=== PATIENT | female | born 1970 | race American Indian/Alaskan Native ===

== ENCOUNTER 2017-03-16 09:03 | Day surgery (SDC) | payer OTHER ==
--- NOTE | 2017-03-15 17:53 | History and Physical Report ---
History of Present Illness Date of examination: 03/12/17 History of present illness: Patient has been reassessed/reevaluated/re-examined. H&P has been reviewed. No interval changes. This is a 46 years old female who presents with menstrual disorder. She complains of irregular menses, mid-cycle spotting, heavy bleeding, dysmenorrhea , clotting, history of fibroids, fatigue and cramping, but denies lack of menses , history of ovarian cysts, history of thyroid disease, history of PCOS, history of bleeding disorder and lightheadedness. The patient also presents with uterine fibroids. She complains of abdominal pain, abdominal pressure, pelvic pain, pelvic pressure, menorrhagia and intermenstrual bleeding. Prior to today's visit the patient has had MRI of pelvis and US of pelvis. Patient with submucosal myoma scheduled to undergo uterine fibroid embolization and need removal prior to UFE Vital Signs: Patient Profile: 46 Years Old Female LMP: 03/12/2017 Height: 65 inches (165.10 cm) Weight: 157 pounds (71.36 kg) BMI: 26.12 BSA: 1.79 Menstrual History: LMP (date): 03/12/2017 Current Method of Contraception: None Past History : 6 Term Births: 6 Premature Births: 0 Living Children: 5 Para: 6 Mult. Births: 0 Prev : 0 Prev. attempt? 0 Aborta: 0 Elect. Ab: 0 Spont. Ab: 0 Ectopics: 0 [employer]ICE [employer]IST History Operations: umbilical hernia Tubal Ligation Abnormal PAP: positive Uterine Anomaly: positive fibroids Infection History HIV Risk Eval: no Personal hx. of genital herpes: yes Current Allergies (reviewed today): * LISINOPRIL (Critical) VICODIN (Critical) Past Medical History: Hypertension Past Surgical History: umbilical hernia Tubal Ligation Family History Summary: Other family member - Has Family History of Diabetes - Entered On: 11/09/2016 Other family member - Has Family History of Hypertension - Entered On: 11/09/2016 Social History: Patient is Smoking History: Patient has never smoked. Risk Factors: Smoked Tobacco Use: Never smoker Smokeless Tobacco Use: Never Passive smoke exposure: no Drug use: no HIV high-risk behavior: no Alcohol use: no Exercise: no Seatbelt use: 100 % Past History Past Medical History: other (See HPI) Past Surgical History: Other (See HPI) Social history: other (See HPI) Family history: other (See HPI) Medications and Allergies Allergies Allergy/AdvReac Type Severity Reaction Status Date / Time hydrocodone Allergy dizziness, Verified 03/14/17 17:44 N&V RANI Inhibitors AdvReac Swelling Unverified 03/14/17 17:44 Home Medications Medication Instructions Recorded Confirmed Last Taken Type Fluconazole [Diflucan TAB] 1 tab PO PRN PRN 03/14/17 03/14/17 Unknown History Hydrochlorothiazide [HCTZ] 25 mg PO DAILY 03/14/17 03/14/17 Unknown History Spironolactone [Aldactone] 50 mg PO DAILY 03/14/17 03/14/17 Unknown History amLODIPine [Norvasc] 5 mg PO DAILY 03/14/17 03/14/17 Unknown History Review of Systems Constitutional: other (See HPI) Exam - Physical Exam Narrative exam: HEENT: normocephalic, no lesions or deformities Neck/Thyroid: supple, thyroid normal Skin no ulcers, xanthomas Chest: breathing unlabored Breasts: skin/areolae normal, no masses, no nipple discharge, no erythema/warmth /tenderness, and axillae normal. CV: regular, normal S1-S2, no murmur, no rub, no gallop Abdomen: soft, non-tender, no masses, bowel sounds normal Musculoskeletal: grossly normal ROM in joints, no joint tenderness or muscle weakness Neuro: no gross anomalities Extremities: no clubbing, cyanosis, or edema [employer]IST Exams Vulva/Vagina: normal appearance, no discharge, lesions. No evidence of cystocele or rectocele. Cervix: normal appearance, no lesions, no discharge Uterus: enlarged 10 to 12 weeks in size Adnexae: no masses or tenderness Rectovaginal: exam defered Assessment and Plan - Patient Problems (1) Submucous leiomyoma of uterus Current Visit: Yes Status: Acute Plan to address problem: Diagnosis explained to patient . Questions answered. Patient's symptoms when present disrupts her normal daily activities Patient desires definitive treatment . She desires myosure prior to UFE Discussed risk of surgery including infection, bleeding and risk of perforating her uterus. Questions answered. Patient understands and desires to proceed (2) Menorrhagia Current Visit: Yes Status: Acute Qualifiers: Menorrahagia type: with irregular cycle Qualified Code(s): N92.1 - Excessive and frequent menstruation with irregular cycle Plan to address problem: Probably secondary to # 1 (3) Hypertension, essential Current Visit: Yes Status: Acute
[~2017-03-16 09:03] MED LIST: NACL 0.9% 1000 ML 1,000 ML IV SCH; PEPCID PO NR; VERSED IV NR
[2017-03-16] MEDS ORDERED: NACL BACTERIOSTATIC INFILTRATI ONE (09:30)
--- NOTE | 2017-03-16 09:41 | Anesthesia Consultation ---
Anesthesia Consult and Med Hx Date of service: 03/16/17 - Airway Anesthetic Teeth Evaluation: Good, Partials (lower) ROM Head & Neck: Adequate Mental/Hyoid Distance: Adequate Mallampati Class: Class II Intubation Access Assessment: Probably Good - Pulmonary Exam CTA: Yes - Cardiac Exam Cardiac Exam: RRR - Pre-Operative Health Status ASA Pre-Surgery Classification: ASA2 Proposed Anesthetic Plan: General - Cardiovascular System Hx Hypertension: Yes (x 9 yrs) - Central Nervous System Hx Psychiatric Problems: No - Hematic Hx Anemia: Yes - Other Systems Hx Alcohol Use: Yes (occas) Hx Cancer: No
--- NOTE | 2017-03-16 09:42 | Anesthesia Day of Surgery ---
Anesthesia Day of Surgery - Day of Surgery Patient Examined: Yes Patient H&P Reviewed: Yes Patient is NPO: Yes
[2017-03-16] MEDS ORDERED: SUBLIMAZE ONE (09:53)
[2017-03-16] MEDS ORDERED: DIPRIVAN 10 MG/ML IV ONE (09:53)
[2017-03-16] MEDS ORDERED: XYLOCAINE MPF 2% ONE (09:54)
[2017-03-16] MEDS ORDERED: DECADRON ONE (09:54)
[2017-03-16] MEDS ORDERED: TORADOL ONE (09:54)
[2017-03-16] MEDS ORDERED: ZOFRAN ONE ×2 (09:54→12:48)
[2017-03-16 10:04] LABS: Hematocrit 33.2 % (30.3-42.9); Hemoglobin 10.8 gm/dl (10.1-14.3)
[2017-03-16] MEDS ORDERED: NEO SYNEPHRINE/NS Syringe(OR USE) IV ONE ×2 (11:01→11:45)
[2017-03-16] MEDS ORDERED: ADRENALIN ONE (11:31)
[2017-03-16] MEDS ORDERED: NACL 0.9% IR ONE ×2 (11:45)
[2017-03-16] MEDS ORDERED: SILVER NITRATE TP ONE ×2 (11:45→11:57)
[2017-03-16] MEDS ORDERED: NACL 0.9% 1000 ML 1,000 ML ONE (11:55)
--- NOTE | 2017-03-16 12:13 | Short Stay Summary ---
Short Stay Documentation Date of service: 03/16/17 - History H&P: dictated Past Medical History: other (See HPI) Past Surgical History: Other (See HPI) Social history: other (See HPI) - Allergies and Medications Current Medications: Allergies hydrocodone Allergy (Verified 03/14/17 17:44) dizziness, N&V RANI Inhibitors Adverse Reaction (Verified 03/16/17 09:41) Swelling Home Medications Medication Instructions Recorded Confirmed Last Taken Type Fluconazole [Diflucan TAB] 1 tab PO PRN PRN 03/14/17 03/16/17 2 Weeks Ago History ~03/02/17 Hydrochlorothiazide [HCTZ] 25 mg PO DAILY 03/14/17 03/14/17 03/14/17 History Spironolactone [Aldactone] 50 mg PO DAILY 03/14/17 03/14/17 03/14/17 History amLODIPine [Norvasc] 5 mg PO DAILY 03/14/17 03/16/17 03/16/17 07:30 History Cider Vinegar [Apple Cider Vinegar] 600 mg PO DAILY 03/16/17 03/16/17 03/14/17 History Doxycycline [Vibramycin CAP] 100 mg PO Q12HR #14 capsule 03/16/17 Unknown Rx Ibuprofen [Motrin 800 MG tab] 800 mg PO Q6H PRN #30 tablet 03/16/17 Unknown Rx Active Medications Famotidine (Pepcid) 20 mg PO PREOP NR Stop: 03/16/17 23:00 Last Admin: 03/16/17 09:43 Dose: 20 mg Sodium Chloride (Nacl 0.9% 1000 Ml) 1,000 mls @ 100 mls/hr IV DIRECT LUCAS Stop: 03/16/17 23:00 Last Admin: 03/16/17 09:45 Dose: 100 mls/hr Midazolam HCl (Versed) 2 mg IV PREOP NR Stop: 03/16/17 23:00 Last Admin: 03/16/17 10:10 Dose: 2 mg - Brief post op/procedure progress note Date of procedure: 03/16/17 (see dictated op note) - Hospital course Hospital course: Patient was admitted underwent the above him procedure without any complications. Patient will be discharged with follow-up in office in 1-2 weeks for postop check. - Disposition Condition at discharge: Good Disposition: DC-01 TO HOME OR SELFCARE - Discharge Diagnoses (1) Submucous leiomyoma of uterus Status: Acute (2) Menorrhagia Status: Acute Qualifiers: Menorrahagia type: with irregular cycle Qualified Code(s): N92.1 - Excessive and frequent menstruation with irregular cycle (3) Hypertension, essential Status: Acute Short Stay Discharge Plan Activity: advance as tolerated Diet: regular Follow up with: MARY BETH STARR MD [Primary Care Provider] - 7 Days Prescriptions: Ibuprofen [Motrin 800 MG tab] 800 mg PO Q6H PRN #30 tablet PRN Reason: Pain Doxycycline [Vibramycin CAP] 100 mg PO Q12HR #14 capsule
--- NOTE | 2017-03-16 12:17 | Operative Report ---
Operative Report Operative Report: Date of procedure: 03/16/2017 Pre-operative diagnosis: Symptomatic submucosal leiomyomas Post-operative diagnosis: Same Procedure name(s): Operative hysteroscopy with MyoSure Surgeon: Everardo Hooper MD Video Production Engineer: [facility]E Anesthesia: Gen. EBL: Minimal Complications: None Findings: Patient with 2 submucosa myomas measuring approximately 2-3 cm in diameter both tubal ostia seen and some thickened endometrium Specimen(s): Leiomyoma Procedure: Patient was brought into the operating room, where general anesthesia was induced without any difficulty. Patient was placed in dorsal lithotomy position. Prep and drape in the usual sterile manner. Timeout procedure was performed. The patient's bladder was emptied with a red rubber catheter. Speculum was placed in the vagina. Tenaculum was placed at 12:00 on the cervix. The cervical os was dilated to a 19 [place] diameter. The hysteroscope was placed and the findings noted above. The MyoSure device was primed. The device was placed through the cervical os. The mass was then removed using the MyoSure. The mass was completely removed with no evidence of puncture on the uterine wall. All instruments were then removed. The patient was awakened in the operating room and accompanied to recovery room in good condition.
[2017-03-16] MEDS ORDERED: MORPHINE IV PRN (12:28)
[2017-03-16] MEDS ORDERED: PHENERGAN PO PRN (13:25)
[2017-03-16] MEDS ORDERED: ZOFRAN IV PRN (13:25)
--- NOTE | 2017-03-16 13:40 | Post Anesthesia Evaluation ---
- Post Anesthesia Evaluation Patient Participated: Yes Airway Patent: Yes Stable Respiratory Function: Yes Nausea/Vomiting: No Temp > 96.8F: Yes Pain Manageable: Yes Adequeate Hydration: Yes Anesthesia Complications: No Block Receding Appropriately: Not Applicable Patient on Ventilator: No
[2017-03-16] MEDS ORDERED: REGLAN IV NR (14:10)
[2017-03-16] MEDS ORDERED: TRANSDERM-SCOP TD NR (15:00)
[2017-03-16 16:53] VITALS: BP 105/73
== END 2017-03-16 16:30 | disposition home or self-care (01) ==
LOC: OR 09:03
PROVIDERS: ATTEND Obstetrics & Gynecology
DX: D25.0 Submucous leiomyoma of uterus (principal); I10 Essential (primary) hypertension; Z79.899 Other long term (current) drug therapy; Z98.51 Tubal ligation status; Z98.890 Other specified postprocedural states; Z88.8 Allergy status to other drugs, medicaments and biological substances; Z88.6 Allergy status to analgesic agent
CPT/HCPCS: 36415; 58561; 81025; 84132; 85014; 85018; 88305; A4217; C1782; J0171; J1100; J1885; J2250; J2270; J2370; J2405; J2704; J2765; J7030; J3010; Q0169